=== PATIENT | female | born 1950 | race Caucasian/White ===

== ENCOUNTER 2016-03-24 15:30 | Outpatient (RCR) | payer BC | END 2016-03-27 11:39 | disposition home or self-care (01) | LOC: WSPT 15:30 | DX: M54.5 Low back pain (principal) ==

== ENCOUNTER → 2016-12-27 | Outpatient (CLI) | payer BC | LOC: MC.RAD 10:06 | DX: Z12.31 Encounter for screening mammogram for malignant neoplasm of breast (principal) ==

== ENCOUNTER → 2017-01-18 | Outpatient (CLI) | payer BC | LOC: COL.RAD 09:44 | DX: N30.20 Other chronic cystitis without hematuria (principal); N39.3 Stress incontinence (female) (male) ==

== ENCOUNTER → 2018-01-08 | Outpatient (CLI) | payer MEDICARE, OTHER | LOC: MC.RAD 09:06 | DX: Z12.31 Encounter for screening mammogram for malignant neoplasm of breast (principal); Z80.3 Family history of malignant neoplasm of breast ==

== ENCOUNTER → 2018-03-28 | Outpatient (CLI) | payer MEDICARE, OTHER | LOC: COL.PUL 09:25 | DX: R06.02 Shortness of breath (principal) | CPT/HCPCS: J7674 ==

== ENCOUNTER → 2019-01-20 | Outpatient (CLI) | payer MEDICARE, OTHER | LOC: MC.RAD 09:10 | DX: Z12.31 Encounter for screening mammogram for malignant neoplasm of breast (principal) ==

== ENCOUNTER → 2021-10-13 | Outpatient (CLI) | payer MEDICARE | LOC: COL.RAD 11:48 | DX: N30.20 Other chronic cystitis without hematuria (principal) ==